=== PATIENT | male | born 1965 | race Caucasian/White ===

== ENCOUNTER 2019-03-05 22:00 | Inpatient (IN) | payer SELFPAY ==
[2019-03-05] MEDS ORDERED: NORMAL SALINE 1000 ML 1,000 ML IV ONE (22:41)
[2019-03-05] MEDS ORDERED: LIDOCAINE 1%/EPINEPHRINE INJ 20 ML VIAL INJ ONE (22:47)
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
[2019-03-05 23:00] LABS: HEMATOCRIT 45.8 % (37.9-51.0); HEMOGLOBIN 15.5 g/dL (13.5-17.0); MEAN CORPUSCULAR HEMOGLOBIN 31.4 pg (27.0-33.4); MEAN CORPUSCULAR HGB CONC 33.9 g/dL (32.0-36.0); MEAN CORPUSCULAR VOLUME 93 fl (80-97); PLATELET COUNT 323 10^3/uL (150-450); RED BLOOD COUNT 4.94 10^6/uL (4.35-5.55); RED CELL DISTRIBUTION WIDTH 13.5 % (11.5-14.0); WHITE BLOOD COUNT 22.9 10^3/uL (4.0-10.5)
[2019-03-05 23:15] LABS: ALBUMIN 4.1 g/dL (3.5-5.0); ALCOHOL 125 mg/dL (NONE DETECTED); ALKALINE PHOSPHATASE 83 U/L (38-126); ANION GAP 12 (5-19); ASPARTATE AMINO TRANSFERASE 28 U/L (17-59); BILIRUBIN,TOTAL 0.3 mg/dL (0.2-1.3); BLOOD UREA NITROGEN 11 mg/dL (7-20); CALCIUM 9.6 mg/dL (8.4-10.2); CARBON DIOXIDE 22 mmol/L (22-30); CHLORIDE 106 mmol/L (98-107); GLUCOSE 89 mg/dL (75-110); POTASSIUM 4.3 mmol/L (3.6-5.0); TOTAL PROTEIN 7.1 g/dL (6.3-8.2)
--- NOTE | 2019-03-05 23:19 | RADIOLOGY REPORT (SQ) ---
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 COMPARISON: None. TECHNIQUE: CT scan of the brain and cervical spine without IV contrast. This exam was performed according to our departmental dose-optimization program, which includes automated exposure control, adjustment of the mA and/or kV according to patient size and/or use of iterative reconstruction technique. FINDINGS: BRAIN: The ventricles, cisterns, and sulci are age-appropriate. No evidence of acute infarction, intracranial hemorrhage, extra-axial fluid collection, or midline shift. There is left frontal scalp soft tissue swelling and hematoma. There is an acute nondisplaced fracture of the left zygomatic arch and the posterior wall the left maxillary sinus with internal hemorrhagic secretions. CERVICAL SPINE: No acute cervical fracture or prevertebral soft tissue swelling. There is straightening of the normal cervical lordosis, which may be due to cervical collar, muscle spasm, or patient positioning. The facet joints and disc spaces are preserved. No advanced canal stenosis is identified. IMPRESSION: 1. Acute nondisplaced fractures of the left zygomatic arch and posterior wall of left maxillary sinus. Consider facial bone CT for complete evaluation of the facial bones. 2. No acute intracranial hemorrhage or cervical fracture.
[2019-03-05 23:31] LABS: ABSOLUTE LYMPHOCYTES# (MANUAL) 2.3 10^3/uL (0.5-4.7); ABSOLUTE MONOCYTES # (MANUAL) 2.1 10^3/uL (0.1-1.4); BAND NEUTROPHILS % (MANUAL) 5 % (3-5); BASOPHILS % (MANUAL) 0 % (0-2); EOSINOPHILS % (MANUAL) 0 % (0-6); LYMPHOCYTES % (MANUAL) 10 % (13-45); MONOCYTES % (MANUAL) 9 % (3-13); SEGMENTED NEUTROPHILS % (MAN) 76 % (42-78); TOTAL CELLS COUNTED 100
[2019-03-05 23:32] LABS: PLATELET COMMENT ADEQUATE; RBC MORPHOLOGY COMMENT NORMO-CYTIC/CHROMIC
[2019-03-05] MEDS ORDERED: CEFAZOLIN 1 GM/D5W RTU 1 GM/50 ML RTUPB IV ONE (23:34)
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
--- NOTE | 2019-03-05 23:36 | RADIOLOGY REPORT (SQ) ---
EXAM DESCRIPTION: XR CHEST 1 VIEW COMPLETED DATE/TME: 03/05/2019 22:39 CLINICAL HISTORY: 53 years, Male, syncopal episode COMPARISON: None. NUMBER OF VIEWS: One TECHNIQUE: Single frontal view of the chest was obtained portably LIMITATIONS: None. FINDINGS: Cardiac and mediastinal contours are normal. Strandy opacity is noted about the left lung base, likely atelectasis. Lungs are otherwise clear. No pleural effusion or pneumothorax. IMPRESSION: No acute disease. copyright 2010 [employer]- All Rights Reserved
--- NOTE | 2019-03-05 23:36 | RADIOLOGY REPORT (SQ) ---
EXAM DESCRIPTION: XR TIBIA FIBULA 2 VIEWS COMPLETED DATE/TME: 03/05/2019 22:39 CLINICAL HISTORY: 53 years, Male, swelling, trauma, pain COMPARISON: None. NUMBER OF VIEWS: 4 TECHNIQUE: Right LIMITATIONS: None FINDINGS: Comminuted fracture proximal diaphysis of the fibula. Comminuted spiral fracture distal diaphysis of the tibia. Old posttraumatic change to the ankle. Osteoarthritis IMPRESSION: Tibial and fibular fractures, as described copyright 2010 [employer]- All Rights Reserved
[2019-03-05] MEDS ORDERED: FENTANYL CITRATE INJ/PF 100 MCG/2 ML AMPUL IV ONE (23:38)
[2019-03-05] MEDS ORDERED: ONDANSETRON HCL INJ/PF 4 MG/2 ML SDV IV ONE (23:39)
[2019-03-06] MEDS ORDERED: CEFAZOLIN INJ 1 GM VIAL ONE ×3 (00:06→10:59)
[2019-03-06] MEDS ORDERED: HYDROMORPHONE HCL INJ/PF 2 MG/ML AMPULE IV ONE (00:19)
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
[2019-03-06] MEDS ORDERED: ONDANSETRON 4 MG TAB.RAPDIS PO PRN (02:59)
[2019-03-06] MEDS ORDERED: MAG HYDROX/AL HYDROX/SIMETH SUSP 30 ML UDCUP PO PRN (02:59)
[2019-03-06] MEDS ORDERED: MAGNESIUM HYDROXIDE SUSP 30 ML UDCUP PO PRN (02:59)
[2019-03-06] MEDS ORDERED: ACETAMINOPHEN 325 MG TABLET PO PRN (02:59)
[2019-03-06] MEDS ORDERED: INFLUENZA QUAD (6MOS+) 2019-20 VAC 0.5 ML SYR IM ONE (03:06)
[2019-03-06] MEDS: OXYCODONE HCL IR 5 MG TABLET PO PRN ×4 (04:04→20:40)
[2019-03-06] MEDS: PANTOPRAZOLE SODIUM 20 MG TABLET.DR PO SCH (05:41)
[2019-03-06] MEDS ORDERED: CEFAZOLIN 2 GM/D5W RTU 2 GM/50 ML RTUPB IV SCH (06:00)
[2019-03-06] MEDS ORDERED: CEFAZOLIN INJ 1 GM VIAL IV SCH (06:00)
[2019-03-06] MEDS: MORPHINE SULFATE 10 MG/ML INJ IV PRN ×2 (06:33→20:40)
[2019-03-06] MEDS: NORMAL SALINE 1000 ML 1,000 ML IV PRN ×3 (06:38→23:02)
[2019-03-06] MEDS ORDERED: TRANEXAMIC ACID INJ/PF 1,000 MG/10 ML SDV ONE (10:17)
[2019-03-06] MEDS ORDERED: ONDANSETRON HCL INJ/PF 4 MG/2 ML SDV ONE (10:17)
[2019-03-06] MEDS ORDERED: DEXAMETHASONE SOD PHOSPHATE INJ 4 MG/1 ML VIAL ONE (10:17)
[2019-03-06] MEDS ORDERED: MIDAZOLAM 2 MG/2 ML INJ ONE (10:17)
[2019-03-06] MEDS ORDERED: PROPOFOL INJ 200 MG/20 ML VIAL IV ONE ×2 (10:17→12:05)
[2019-03-06] MEDS ORDERED: FENTANYL CITRATE INJ/PF 100 MCG/2 ML AMPUL ONE (10:17)
[2019-03-06] MEDS ORDERED: KETOROLAC TROMETHAMINE 60 MG/2 ML SDV ONE (10:18)
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
[2019-03-06] MEDS ORDERED: ONDANSETRON HCL INJ/PF 4 MG/2 ML SDV IV PRN (11:17)
[2019-03-06] MEDS ORDERED: DIPHENHYDRAMINE HCL 50 MG/ML VIAL IV PRN (11:17)
[2019-03-06] MEDS ORDERED: MEPERIDINE HCL/PF INJ 25 MG/1 ML DISP.SYRIN IV PRN (11:17)
[2019-03-06] MEDS ORDERED: PROMETHAZINE HCL INJ 25 MG/1 ML VIAL IV PRN ×2 (11:17)
[2019-03-06] MEDS ORDERED: FENTANYL CITRATE INJ/PF 100 MCG/2 ML AMPUL IV PRN ×3 (11:17)
[2019-03-06] MEDS ORDERED: BUPIVACAINE HCL 0.5 % INJ/PF 30 ML SDV ONE (12:06)
[2019-03-06] MEDS ORDERED: LIDOCAINE 1% INJ-PF (10 MG/ML) 30 ML SDV ONE (12:06)
--- NOTE | 2019-03-06 12:47 | Operative Report ---
Operative Report DATE OF SURGERY: 03/06/19 PREOPERATIVE DIAGNOSIS: Right distal tibia fracture POSTOPERATIVE DIAGNOSIS: Right distal tibia fracture, closed OPERATION: Right tibial nail SURGEON: ROBB LYNCH JR ANESTHESIA: Spinal COMPLICATIONS: None ESTIMATED BLOOD LOSS: 20 cc PROCEDURE: The patient was brought to the operating suite and administered spinal anesthesia. 2 g of Ancef were given. They were laid supine on a Emery table, and then prepped and draped in standard sterile fashion. A timeout was performed followed by an incision to the knee. A medial patellar arthrotomy was performed. An awl was utilized to determine the starting point and this was confirmed on AP and lateral fluoroscopy. A guidewire was then passed across the fracture site to the distal tibia. The ball-tipped was then confirmed to be in the center of the tibial plafond on AP and lateral views. An attempt at direct reduction with large pointed reduction forceps was made however due to the short obliquity of the fracture this was unable to be obtained. We measured the length to approximately 375 mm from the surface of the tibial plateau to the subcortical bone and the plafond. The decision was made to proceed with a 345 mm nail. With an delinquent tax collector assistant holding appropriate reduction the tibia was reamed up to a 12.5 reamer. There was adequate chatter at this with and an 11 nail was chosen. A 345 x 11 nail was then impacted with fluoroscopic guidance. A blocking screw was utilized in order to encourage appropriate reduction distally. This was not much benefit and was subsequently removed and ideal reduction was maintained by manual traction. Perfect circles were obtained to place orthogonal screws in the distal tibia subsequently the tibial nail was rotated for appropriate reduction of the fracture site under fluoroscopy, and then the proximal screws were then placed through the guide arm. After this a 15 mm Was placed at the top of the nail, AP and lateral final fluoroscopy was obtained. We then irrigated with copious sterile saline all wounds and closed with #1 Vicryl in the capsule of the knee followed by 2 oh inverted interrupted Monocryl sutures in the skin, followed by valerie and then Xeroform and a neural dressing. The patient was then awakened from anesthesia and transferred to the PACU in stable condition.
[2019-03-06] MEDS: DOCUSATE SODIUM 100 MG CAPSULE PO SCH (13:08)
[2019-03-06] MEDS: ENOXAPARIN SODIUM INJ 30 MG/0.3 ML DISP.SYRIN SUBCUT SCH (13:09)
--- NOTE | 2019-03-06 13:12 | RADIOLOGY REPORT (SQ) ---
EXAM DESCRIPTION: NO CHG FLUORO; TIBIA FIBULA RIGHT COMPLETED DATE/TIME: 03/06/2019 1:00 pm REASON FOR STUDY: FX TIB FIB COMPARISON: None. FLUOROSCOPY TIME: 1.4 minutes 9 images saved to PACS. TECHNIQUE: Intra-operative images acquired during surgical procedure to evaluate progress. NUMBER OF IMAGES: 9 LIMITATIONS: None. FINDINGS: Satniago and interlocking screw fixation of distal tibial fracture. IMPRESSION: IMAGE(S) OBTAINED DURING PROCEDURE. COMMENT: Quality ID 145: Final reports for procedures using fluoroscopy that document radiation exp osure indices, or exposure time and number of fluorographic images (if radiation exposure indices are not available) Please consult full operative report of the attending physician for description of the procedure. TECHNICAL DOCUMENTATION: JOB ID: [id number] [employer]- All Rights Reserved Reading location - IP/workstation name: [email or web address]
--- NOTE | 2019-03-06 13:12 | RADIOLOGY REPORT (SQ) ---
EXAM DESCRIPTION: NO CHG FLUORO; TIBIA FIBULA RIGHT COMPLETED DATE/TIME: 03/06/2019 1:00 pm REASON FOR STUDY: FX TIB FIB COMPARISON: None. FLUOROSCOPY TIME: 1.4 minutes 9 images saved to PACS. TECHNIQUE: Intra-operative images acquired during surgical procedure to evaluate progress. NUMBER OF IMAGES: 9 LIMITATIONS: None. FINDINGS: Santiago and interlocking screw fixation of distal tibial fracture. IMPRESSION: IMAGE(S) OBTAINED DURING PROCEDURE. COMMENT: Quality ID 145: Final reports for procedures using fluoroscopy that document radiation exp osure indices, or exposure time and number of fluorographic images (if radiation exposure indices are not available) Please consult full operative report of the attending physician for description of the procedure. TECHNICAL DOCUMENTATION: JOB ID: [id number] [employer]- All Rights Reserved Reading location - IP/workstation name: [email or web address]
[2019-03-06] MEDS ORDERED: ASPIRIN 325 MG TABLET PO ONE (13:15)
--- NOTE | 2019-03-06 14:10 | RADIOLOGY REPORT (SQ) ---
EXAM DESCRIPTION: TIBIA FIBULA RIGHT COMPLETED DATE/TIME: 03/06/2019 1:17 pm REASON FOR STUDY: post op COMPARISON: Previous day. NUMBER OF VIEWS: Two views. TECHNIQUE: Two radiographic images acquired of the right tibia and fibula to include the knee and an kle in at least one projection. LIMITATIONS: None. FINDINGS: Interval fixation of distal tibial fracture with francia and interlocking screws in expected l ocation. Nondisplaced fracture proximal fibula. IMPRESSION: Successful internal fixation of distal tibial fracture. TECHNICAL DOCUMENTATION: JOB ID: [id number] [employer]- All Rights Reserved Reading location - IP/workstation name: [email or web address]
[2019-03-06] MEDS ORDERED: ASPIRIN 325 MG TABLET ONE (16:09)
[2019-03-06] MEDS: CEFAZOLIN SODIUM 2 GM in DEXTROSE 5%-WATER 100 ML IV SCH ×2 (16:15→21:21)
--- NOTE | 2019-03-06 18:35 | EKG REPORT ---
SEVERITY:- NORMAL ECG - SINUS RHYTHM : Confirmed by: Janett Dover MD 06-Mar-2019 18:33:59
[2019-03-06] MEDS: ZOLPIDEM TARTRATE 5 MG TABLET PO SCH (21:21)
[2019-03-06 21:40] LABS: APPEARANCE,URINE CLEAR; BILIRUBIN,URINE NEGATIVE (NEGATIVE); COLOR,URINE YELLOW; GLUCOSE, URINE NEGATIVE (NEGATIVE); KETONES,URINE NEGATIVE (NEGATIVE); LEUKOCYTE ESTERASE,URINE NEGATIVE (NEGATIVE); NITRITE,URINE NEGATIVE (NEGATIVE); PROTEIN,URINE NEGATIVE (NEGATIVE); URINE SPECIFIC GRAVITY 1.021; UROBILINOGEN,URINE NEGATIVE mg/dL (<2.0)
[2019-03-06 21:54] LABS: URINE BARBITURATES SCREEN NEGATIVE; URINE COCAINE SCREEN NEGATIVE; URINE MARIJUANA (THC) SCREEN NEGATIVE; URINE METHADONE SCREEN NEGATIVE; URINE PHENCYCLIDINE SCREEN NEGATIVE
[2019-03-06 22:57] LABS: URINE AMPHETAMINES SCREEN UNCONFIRMED POSITIVE; URINE BENZODIAZEPINES SCREEN UNCONFIRMED POSITIVE
[2019-03-07] MEDS: MORPHINE SULFATE 10 MG/ML INJ IV PRN ×3 (01:38→10:34)
[2019-03-07] MEDS: OXYCODONE HCL IR 5 MG TABLET PO PRN ×3 (01:38→14:59)
[2019-03-07] MEDS: PANTOPRAZOLE SODIUM 20 MG TABLET.DR PO SCH (05:02)
[2019-03-07] MEDS: CEFAZOLIN SODIUM 2 GM in DEXTROSE 5%-WATER 100 ML IV SCH ×3 (05:02→21:19)
--- NOTE | 2019-03-07 07:36 | PDOC PROGRESS REPORT ---
Subjective Progress Note for:: 03/07/19 Subjective:: Patient is feeling well this morning, he does report considerable right knee and lower extremity pain, however he tolerates this at rest with current pain management. He has not gotten out of bed yet. Reason For Visit: DISTAL TIBIAL FRACTURE Physical Exam Vital Signs: Temp Pulse Resp BP Pulse Ox 97.5 F 96 18 145/62 H 94 03/07/19 01:31 03/07/19 01:31 03/07/19 01:31 03/07/19 01:31 03/07/19 01:31 Intake & Output 03/06/19 03/07/19 03/08/19 06:59 06:59 06:59 Intake Total 1000 4560 Output Total 685 1805 Balance 315 2755 Weight 106.1 kg Physical Exam: Right lower extremity -Pulses 2+ distally -Compartments soft -Wound clean dry and intact no drainage, appropriate appearance for postop day 1 -Sensation grossly intact to L3-4-5 S1 -Motor grossly intact to EHL TA gastroc and quad General appearance: PRESENT: no acute distress, cooperative Results Laboratory Results: 03/05/19 22:48 03/05/19 22:48 03/06/19 21:00 Urine Color YELLOW Urine Appearance CLEAR Urine pH 5.0 Ur Specific [place] 1.021 Urine Protein NEGATIVE Urine Glucose (UA) NEGATIVE Urine Ketones NEGATIVE Urine Blood NEGATIVE Urine Nitrite NEGATIVE Ur Leukocyte Esterase NEGATIVE Urine WBC (Auto) 0 Urine RBC (Auto) 0 Impressions: Cervical Spine CT 03/05/19 22:39 IMPRESSION: 1. Acute nondisplaced fractures of the left zygomatic arch and posterior wall of left maxillary sinus. Consider facial bone CT for complete evaluation of the facial bones. 2. No acute intracranial hemorrhage or cervical fracture. Chest X-Ray 03/05/19 22:39 IMPRESSION: No acute disease. copyright 2010 [employer]- All Rights Reserved Hand X-Ray 03/05/19 22:39 IMPRESSION: No acute displaced fracture is identified copyright 2010 [employer]- All Rights Reserved Head CT 03/05/19 22:39 IMPRESSION: 1. Acute nondisplaced fractures of the left zygomatic arch and posterior wall of left maxillary sinus. Consider facial bone CT for complete evaluation of the facial bones. 2. No acute intracranial hemorrhage or cervical fracture. Fluoroscopy 03/06/19 00:00 IMPRESSION: IMAGE(S) OBTAINED DURING PROCEDURE. Tibia/Fibula X-Ray 03/06/19 00:00 IMPRESSION: Successful internal fixation of distal tibial fracture. Lower Extremity CT 03/06/19 00:15 IMPRESSION: 1. Acute mildly displaced distal tibial and proximal fibular fractures. 2. Sequela of old injury of the right ankle. Assessment & Plan - Diagnosis (1) Displaced spiral fracture of shaft of tibia Qualifiers: Encounter type: initial encounter Fracture type: closed Laterality: right Qualified Code(s): S82.241A - Displaced spiral fracture of shaft of right tibia, initial encounter for closed fracture Is this a current diagnosis for this admission?: Yes Plan: Patient is status post right tibial nail, postoperative day #1. -He is to ambulate with physical therapy today and encourage knee range of motion. -He describes a home situation which may allow him to return home today. However pending evaluation by physical therapy, Occupational Therapy, Case management, his potential knees may be better met at a rehab facility for short duration. I will follow their recommendations. - 2 doses of Ancef postoperatively q 8 hours to complete 24 hours perioperatively -Weightbearing as tolerated, no precautions, encourage out of bed IZZY for ADL training - PT/OT - Keep lower leg elevated on a stack of blankets -aspirin 325 daily for DVT prophylaxis for 6 weeks -multimodal pain management to avoid excessive narcotics, including gabapentin, tramadol, Toradol, acetaminophen. -Dressing change as needed every other day. - No showering or submersion until seen in my office and cleared, the patient should otherwise sponge bath. -I would like to follow the patient my office within the next 7 to [address] [place] [address]. in [place] office #: [phone] - Time Time Spent with patient: Less than 15 minutes
[2019-03-07] MEDS: ASPIRIN 325 MG TABLET, ENT COATED PO SCH (09:02)
[2019-03-07] MEDS: DOCUSATE SODIUM 100 MG CAPSULE PO SCH (09:02)
[2019-03-07] MEDS: ENOXAPARIN SODIUM INJ 30 MG/0.3 ML DISP.SYRIN SUBCUT SCH (09:03)
[2019-03-07] MEDS ORDERED: LORAZEPAM INJ 2 MG/1 ML VIAL IV PRN (09:03)
[2019-03-07 09:39] LABS: ABSOLUTE BASOPHILS # (AUTO) 0.1 10^3/uL (0.0-0.2); ABSOLUTE LYMPHOCYTES (AUTO) 1.4 10^3/uL (0.5-4.7); ABSOLUTE MONOCYTES (AUTO) 1.6 10^3/uL (0.1-1.4); ABSOLUTE NEUT (AUTO) 14.5 10^3/uL (1.7-8.2); BASOPHILS % (AUTO) 0.4 % (0-2); HEMATOCRIT 39.5 % (37.9-51.0); LYMPHOCYTES % (AUTO) 7.8 % (13-45); MEAN CORPUSCULAR HEMOGLOBIN 31.2 pg (27.0-33.4); MEAN CORPUSCULAR HGB CONC 33.5 g/dL (32.0-36.0); MEAN CORPUSCULAR VOLUME 93 fl (80-97); PLATELET COUNT 297 10^3/uL (150-450); RED BLOOD COUNT 4.23 10^6/uL (4.35-5.55); RED CELL DISTRIBUTION WIDTH 13.3 % (11.5-14.0); SEGMENTED NEUTROPHILS % (AUTO) 82.8 % (42-78); TOTAL CELLS COUNTED % (AUTO) 100 %; WHITE BLOOD COUNT 17.6 10^3/uL (4.0-10.5)
[2019-03-07 09:40] LABS: HEMOGLOBIN 13.2 g/dL (13.5-17.0)
[2019-03-07 09:50] LABS: ALBUMIN 3.6 g/dL (3.5-5.0); ALKALINE PHOSPHATASE 79 U/L (38-126); ANION GAP 10 (5-19); ASPARTATE AMINO TRANSFERASE 29 U/L (17-59); BILIRUBIN,DIRECT 0.3 mg/dL (0.0-0.4); BILIRUBIN,TOTAL 0.4 mg/dL (0.2-1.3); BLOOD UREA NITROGEN 15 mg/dL (7-20); CALCIUM 8.6 mg/dL (8.4-10.2); CARBON DIOXIDE 25 mmol/L (22-30); CHLORIDE 103 mmol/L (98-107); GLUCOSE 127 mg/dL (75-110); POTASSIUM 4.8 mmol/L (3.6-5.0); TOTAL PROTEIN 6.6 g/dL (6.3-8.2)
[2019-03-07] MEDS ORDERED: NICOTINE 14 MG/24 HR PATCH.TD24 TD PRN (10:05)
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
[2019-03-07] MEDS: GABAPENTIN 300 MG CAPSULE PO SCH (18:53)
[2019-03-07] MEDS: ACETAMINOPHEN 325 MG TABLET PO SCH (21:18)
[2019-03-07] MEDS: ZOLPIDEM TARTRATE 5 MG TABLET PO SCH (21:19)
[2019-03-08] MEDS: PANTOPRAZOLE SODIUM 20 MG TABLET.DR PO SCH (05:10)
[2019-03-08] MEDS: GABAPENTIN 300 MG CAPSULE PO SCH (05:10)
[2019-03-08] MEDS: ACETAMINOPHEN 325 MG TABLET PO SCH ×2 (05:11→14:37)
[2019-03-08] MEDS: CEFAZOLIN SODIUM 2 GM in DEXTROSE 5%-WATER 100 ML IV SCH (05:11)
[2019-03-08] MEDS: OXYCODONE HCL IR 5 MG TABLET PO PRN ×3 (05:22→14:36)
[2019-03-08 05:33] LABS: ABSOLUTE BASOPHILS # (AUTO) 0.1 10^3/uL (0.0-0.2); ABSOLUTE EOSINOPHILS # (AUTO) 0.1 10^3/uL (0.0-0.6); ABSOLUTE LYMPHOCYTES (AUTO) 3.2 10^3/uL (0.5-4.7); ABSOLUTE MONOCYTES (AUTO) 0.8 10^3/uL (0.1-1.4); ABSOLUTE NEUT (AUTO) 7.8 10^3/uL (1.7-8.2); BASOPHILS % (AUTO) 0.9 % (0-2); EOSINOPHILS % (AUTO) 0.6 % (0-6); HEMATOCRIT 38.4 % (37.9-51.0); HEMOGLOBIN 12.9 g/dL (13.5-17.0); LYMPHOCYTES % (AUTO) 26.7 % (13-45); MEAN CORPUSCULAR HEMOGLOBIN 31.4 pg (27.0-33.4); MEAN CORPUSCULAR HGB CONC 33.6 g/dL (32.0-36.0); MEAN CORPUSCULAR VOLUME 94 fl (80-97); MONOCYTES % (AUTO) 6.7 % (3-13); PLATELET COUNT 292 10^3/uL (150-450); RED CELL DISTRIBUTION WIDTH 13.5 % (11.5-14.0); SEGMENTED NEUTROPHILS % (AUTO) 65.1 % (42-78); TOTAL CELLS COUNTED % (AUTO) 100 %; WHITE BLOOD COUNT 11.9 10^3/uL (4.0-10.5)
[2019-03-08 06:05] LABS: ALBUMIN 3.3 g/dL (3.5-5.0); ALKALINE PHOSPHATASE 62 U/L (38-126); ANION GAP 8 (5-19); ASPARTATE AMINO TRANSFERASE 27 U/L (17-59); BILIRUBIN,DIRECT 0.3 mg/dL (0.0-0.4); BILIRUBIN,TOTAL 0.4 mg/dL (0.2-1.3); BLOOD UREA NITROGEN 13 mg/dL (7-20); CALCIUM 8.6 mg/dL (8.4-10.2); CARBON DIOXIDE 28 mmol/L (22-30); CHLORIDE 103 mmol/L (98-107); GLUCOSE 127 mg/dL (75-110); POTASSIUM 4.3 mmol/L (3.6-5.0); TOTAL PROTEIN 6.4 g/dL (6.3-8.2)
[2019-03-08] MEDS: ASPIRIN 325 MG TABLET, ENT COATED PO SCH (09:16)
[2019-03-08] MEDS: DOCUSATE SODIUM 100 MG CAPSULE PO SCH (09:16)
[2019-03-08] MEDS: ENOXAPARIN SODIUM INJ 30 MG/0.3 ML DISP.SYRIN SUBCUT SCH (09:17)
[2019-03-08 15:29] VITALS: BP 127/72
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
== END 2019-03-08 16:27 | disposition home or self-care (01) | DRG 493 ==
LOC: ER 22:00 → OBSVTOIN 03-06 00:49 → EH 03-06 00:49 → 4N 03-06 02:35
PROVIDERS: ADMIT Orthopaedic Surgery; ATTEND Orthopaedic Surgery
PROC: 0HQFXZZ Repair Right Hand Skin, External Approach (ICD-10-PCS; 2019-03-06)
PROC: 0QSG34Z Reposition Right Tibia with Internal Fixation Device, Percutaneous Approach (ICD-10-PCS; principal; 2019-03-06 10:30)
PROC: 3E02340 Introduction of Influenza Vaccine into Muscle, Percutaneous Approach (ICD-10-PCS; 2019-03-08)
DX: S82.241A Displaced spiral fracture of shaft of right tibia, initial encounter for closed fracture (principal); S02.40DA Maxillary fracture, left side, initial encounter for closed fracture; S02.40FA Zygomatic fracture, left side, initial encounter for closed fracture; S82.831A Other fracture of upper and lower end of right fibula, initial encounter for closed fracture; F10.10 Alcohol abuse, uncomplicated; D72.829 Elevated white blood cell count, unspecified; Y08.09XA Assault by strike by other specified type of sport equipment, initial encounter; F15.10 Other stimulant abuse, uncomplicated; F13.10 Sedative, hypnotic or anxiolytic abuse, uncomplicated; S61.411A Laceration without foreign body of right hand, initial encounter; F17.200 Nicotine dependence, unspecified, uncomplicated; Y92.9 Unspecified place or not applicable; Z88.5 Allergy status to narcotic agent; Y90.6 Blood alcohol level of 120-199 mg/100 ml; Z82.49 Family history of ischemic heart disease and other diseases of the circulatory system; Z23 Encounter for immunization
CPT/HCPCS: 01462; 36415; 70450; 71045; 72125; 80053; 80307; 81001; 83735; 85025; 90686; 93005; 93010; 96361; 96365; 96375; 99285; C1713; C1769; J0690; J1100; J1170; J1650; J1885; J2060; J2250; J2270; J2405; J2704; J3010; J3490; J7030; J7060; L0172; L1830